=== PATIENT | male | born 1990 | race Caucasian/White ===

== ENCOUNTER 2019-05-26 11:53 | Emergency (ER) | payer BC, OTHER ==
--- NOTE | 2019-05-26 14:39 | EDM.PDOC ---
Scribed by Tory Harrington 05/26/19 1430 for Kory Mansfield PA ED HPI GENERAL MEDICAL PROBLEM - General Chief Complaint: ENT Problem Stated Complaint: ABSCESS TOOTH Time Seen by Provider: 05/26/19 14:17 Source of Information: Reports: Patient, RN, RN Notes Reviewed History Limitations: Reports: No Limitations - History of Present Illness INITIAL COMMENTS - FREE TEXT/NARRATIVE: Patient is a 29-year-old male who reports with left upper posterior dental pain. The patient has taken Tylenol/Ibuprofen, but has had little to no symptom relief. Onset: Gradual Duration: Getting Worse Location: Reports: Other (tooth) Quality: Reports: Sharp Severity: Moderate Improves with: Reports: None Worsens with: Reports: None Associated Symptoms: Reports: No Other Symptoms - Related Data Allergies Allergy/AdvReac Type Severity Reaction Status Date / Time codeine Allergy Rash Verified 05/26/19 13:27 Home Meds: Home Meds buPROPion HCl [Wellbutrin Xl] 300 mg PO DAILY 05/26/19 [History] Past Medical History - Past Health History Medical/Surgical History: Denies Medical/Surgical History Social & Family History - Family History Family Medical History: Noncontributory - Tobacco Use Smoking Status *Q: Never Smoker Second Hand Smoke Exposure: No - Caffeine Use Caffeine Use: Reports: None - Recreational Drug Use Recreational Drug Use: No ED ROS ENT - Review of Systems Review Of Systems: Comprehensive ROS is negative, except as noted in HPI. ED EXAM, ENT - Physical Exam Exam: See Below Exam Limited By: No Limitations Eye Exam: Bilateral Eye: EOMI, Normal Inspection, PERRL Ears: Normal External Exam, Normal Canal, Hearing Grossly Normal, Normal TMs Nose: Normal Inspection, Normal Mucousa, No Blood Mouth/Throat: Other (left upper molar abscess) Head: Atraumatic, Normocephalic Neck: Normal Inspection, Supple, Non-Tender, Full Range of Motion Respiratory/Chest: No Respiratory Distress, Lungs Clear, Normal Breath Sounds, No Accessory Muscle Use, Chest Non-Tender Cardiovascular: Normal Peripheral Pulses, Regular Rate, Rhythm, No Edema, No Gallop, No JVD, No Murmur, No Rub GI/Abdominal: Normal Bowel Sounds, Soft, Non-Tender, No Organomegaly, No Distention, No Abnormal Bruit, No Mass (Male) Exam: Deferred Rectal (Males) Exam: Deferred Back: Normal Inspection, Full Range of Motion Extremities: Normal Inspection, Normal Range of Motion, Non-Tender, No Pedal Edema, Normal Capillary Refill Neurological: Alert, Oriented, CN II-XII Intact, Normal Cognition, Normal Gait, Normal Reflexes, No Motor/Sensory Deficits Psychiatric: Normal Affect, Normal Mood Skin: Warm, Dry, Intact, Normal Color, No Rash Lymphatic: No Adenopathy Course - Vital Signs Last Recorded V/S: Last Vital Signs Temp 36.5 C 05/26/19 13:28 Pulse 86 05/26/19 13:28 Resp 16 05/26/19 13:28 BP 135/88 05/26/19 13:28 Pulse Ox 99 05/26/19 13:28 Departure - Departure Time of Disposition: 14:26 Disposition: Home, Self-Care 01 Condition: Fair Clinical Impression: Dental abscess - Discharge Information *PRESCRIPTION DRUG MONITORING PROGRAM REVIEWED*: Not Applicable *COPY OF PRESCRIPTION DRUG MONITORING REPORT IN PATIENT DAGOBERTO: Not Applicable Instructions: Dental Abscess, [id number] Forms: ED Department Discharge Care Plan Goals: This patient was advised of the examination results during the visit. The patient was discharged with scripts for 1) Clindamycin (300 mg) #40 to take 1 by mouth 4 times per day for 10 days, 2) [place] (5/325) #8 to take 1 by mouth at night as needed for pain and 3) Viscous Lidocaine 2% #100 mL to apply 5 mL to the affected area every 6 hours as needed for pain. If the patient has any additional symptoms or concerns, the patient should either return to the emergency department, see his dentist or visit his primary care facility. Sepsis Event Note - Evaluation Sepsis Screening Result: No Definite Risk - Focused Exam Vital Signs: Vital Signs Temp Pulse Resp BP Pulse Ox 05/26/19 13:28 36.5 C 86 16 135/88 99 Date Exam was Performed: 05/26/19 Time Exam was Performed: 14:39 I have read and agree with the documentation that has been completed regarding this visit. By signing this record, I attest that the documentation was completed in my physical presence and is an accurate record of the encounter.
== END 2019-05-26 14:35 | disposition home or self-care (01) ==
LOC: DL.ED 11:53
DX: K04.7 Periapical abscess without sinus (principal); Z88.5 Allergy status to narcotic agent; Z79.899 Other long term (current) drug therapy
CPT/HCPCS: 99282

== ENCOUNTER 2020-08-10 19:12 | Emergency (ER) | payer BC, OTHER ==
--- NOTE | 2020-08-10 19:38 | EDM.PDOC ---
ED HPI GENERAL MEDICAL PROBLEM - General Chief Complaint: Upper Extremity Injury/Pain Stated Complaint: INJURY TO RIGHT HAND Time Seen by Provider: 08/10/20 19:30 Source of Information: Reports: Patient History Limitations: Reports: No Limitations - History of Present Illness INITIAL COMMENTS - FREE TEXT/NARRATIVE: c/o pain to base right index finger started couple days prior, tonight only comfortable if elevated. Denied injury Possible using more than usual with throttle on 4 galvez on Saturday. No fever or chills. No hx gout. Right Hand Pain Score (Numeric/FACES): 6 - Related Data Allergies Allergy/AdvReac Type Severity Reaction Status Date / Time codeine Allergy Rash Verified 08/10/20 19:32 Past Medical History - Past Health History Medical/Surgical History: Denies Medical/Surgical History Musculoskeletal History: Reports: Fracture Psychiatric History: Reports: Anxiety - Infectious Disease History Infectious Disease History: Reports: Novel Coronavirus Social & Family History - Family History Family Medical History: No Pertinent Family History - Tobacco Use Tobacco Use Status *Q: Never Tobacco User Second Hand Smoke Exposure: No - Caffeine Use Caffeine Use: Reports: None - Recreational Drug Use Recreational Drug Use: No Review of Systems - Review of Systems Review Of Systems: Comprehensive ROS is negative, except as noted in HPI. ED EXAM, GENERAL - Physical Exam Exam: See Below Exam Limited By: No Limitations General Appearance: Alert, Mild Distress Eye Exam: Bilateral Eye: EOMI Nose: Normal Inspection Throat/Mouth: Normal Voice Head: Atraumatic, Normocephalic Respiratory/Chest: No Respiratory Distress, Normal Breath Sounds Cardiovascular: Regular Rate, Rhythm Extremities: Joint Swelling (right 2nd distal mcp tender mild erythema . Skin intact.. Joint tender to palpation.) Neurological: Alert, Oriented Course - Vital Signs Last Recorded V/S: Last Vital Signs Temp 98.3 F 08/10/20 19:24 Pulse 107 H 08/10/20 19:24 Resp 18 08/10/20 19:24 BP 131/82 08/10/20 19:24 Pulse Ox 98 08/10/20 19:24 - Orders/Labs/Meds Labs: Laboratory Tests 08/10/20 08/10/20 Range/Units 20:45 20:45 WBC 11.8 H (5.0-10.0) 10^3/uL RBC 4.96 (4.6-6.2) 10^6/uL Hgb 15.0 (14.0-18.0) g/dL Hct 42.5 (40.0-54.0) % MCV 85.7 (80-100) fL MCH 30.2 (27.0-34.0) pg MCHC 35.3 H (33.0-35.0) g/dL Plt Count 265 (150-450) 10^3/uL Neut % (Auto) 67.6 (42.2-75.2) % Lymph % (Auto) 23.7 (20.5-50.1) % [place] % (Auto) 7.1 (2-8) % Eos % (Auto) 1.1 (1.0-3.0) % Baso % (Auto) 0.5 (0.0-1.0) % Sodium 142 (136-145) mmol/L Potassium 3.7 (3.5-5.1) mmol/L Chloride 104 (98-107) mmol/L Carbon Dioxide 29 (21-32) mmol/L Anion Gap 12.7 (7-13) mEq/L BUN 10 (7-18) mg/dL Creatinine 1.00 (0.70-1.30) mg/dL Est Cr Clr Drug Dosing 119.63 mL/min Estimated GFR (MDRD) > 60 BUN/Creatinine Ratio 10.0 (No establ ref range) Glucose 111 H (74-99) mg/dL Uric Acid 5.7 (3.5-7.2) mg/dL Calcium 9.1 (8.5-10.1) mg/dL Total Bilirubin 0.5 (0.2-1.0) mg/dL AST 23 (15-37) U/L ALT 54 (16-63) U/L Alkaline Phosphatase 65 (46-116) U/L Total Protein 7.5 (6.4-8.2) g/dL Albumin 4.2 (3.4-5.0) g/dL Globulin 3.3 Albumin/Globulin Ratio 1.3 Meds: Medications Discontinued Medications Generic Name Dose Route Start Last Admin Trade Name Freq PRN Reason Stop Dose Admin Ibuprofen 600 mg 08/10/20 20:34 08/10/20 20:51 Ibuprofen 600 Mg Tab PO 08/10/20 20:35 600 mg ONETIME ONE Administration Departure - Departure Time of Disposition: 21:18 Disposition: Home, Self-Care 01 Condition: Good Clinical Impression: Pain, joint, hand, right - Discharge Information *PRESCRIPTION DRUG MONITORING PROGRAM REVIEWED*: No *COPY OF PRESCRIPTION DRUG MONITORING REPORT IN PATIENT DAGOBERTO: No Instructions: Tendinitis, [id number] Referrals: Elsie Coyle PA-C [Primary Care Provider] - Forms: ED Department Discharge Additional Instructions: alternate tylenol 650mg and ibuprofen 600mg every 4 hours as needed ice pack 15 minutes 4 times daily as needed indira tape index and middle finger for comfort follow up if not improving, worsening redness swelling, or fevers Sepsis Event Note (ED) - Evaluation Sepsis Screening Result: No Definite Risk - Focused Exam Vital Signs: Vital Signs Temp Pulse Resp BP Pulse Ox 08/10/20 19:24 98.3 F 107 H 18 131/82 98
--- NOTE | 2020-08-10 20:04 | CR ---
PROCEDURE INFORMATION: Exam: XR Right Hand Exam date and time: 08/10/2020 7:45 PM Age: 30 years old Clinical indication: Pain; Swelling; Hand; Right; Additional info: Pain swelling TECHNIQUE: Imaging protocol: XR Right hand. Views: 3 or more views. COMPARISON: No relevant prior studies available. FINDINGS: Bones/joints: There appears to be a nondisplaced crack through the proximal end of the right 5th metacarpal as suggested on the oblique view but difficult to confirm on the other two views. The alignment of the joints is anatomic and the joint spaces are maintained. Soft tissues: There is no evidence of a radio-opaque foreign body. Soft tissue swelling is demonstrated near the base of the right 5th metacarpal. IMPRESSION: A fracture is suspected at the base of the right 5th metacarpal but is suggested only on the oblique view and not confirmed on the others.
[2020-08-10] MEDS ORDERED: Ibuprofen 600 MG Tab PO ONE (20:34)
[2020-08-10 21:14] LABS: ANION GAP 12.7 mEq/L (7-13); CHLORIDE,CL 104 mmol/L (98-107); SODIUM,NA 142 mmol/L (136-145)
== END 2020-08-10 21:27 | disposition home or self-care (01) ==
LOC: DL.ED 19:12
DX: M79.641 Pain in right hand (principal); Z86.16 Personal history of COVID-19; Z88.5 Allergy status to narcotic agent
CPT/HCPCS: 36415; 73130; 80053; 84550; 85025; 99283; A9270